=== PATIENT | female | born 1960 | race African-American/Black ===

== ENCOUNTER 2023-10-21 14:17 | Outpatient (AMB) | payer OTHER, SELFPAY ==
--- NOTE | 2023-10-21 14:22 | HO.SPINEOV ---
Intake Intake Visit Reasons: Lumbar spondylosis & DDD Intake Note: Ms. Salinas is here today c/o Lower Back pain that radiates to both legs. 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 She is a pleasant 63 y/o female who comes in today with a CC of low back pain with radiation into her right lower extremity. She states that her pain began about 1 year ago with no inciting incident identified. She reports that she awoke 1 day with low back pain and shooting pains into her right leg. When describing the radiation of her pain she runs her hand over posterior buttocks, across her anterior thigh, over the knee, and down the right lateral side of her calf. She states that it also affects the top of her foot. She reports associated symptoms of a feeling of weakness on the right side. She is attempted physical therapy which she reports was not helpful and only increased her pain. She states she is currently taking extra-strength Tylenol up to 4-6 times a day, with only minimal relief of her symptoms. She is attempted to utilize ice, heat, rest, pain patches, and [id number] pain creams with only modest relief. She reports that her pain is worse with standing and ambulating, causing her to favor her left side. She reports her pain is alleviated by resting and sitting. PMH: Obesity, Hypothyroidism, hypertension, iron-deficiency anemia, chronic kidney disease, history thyroid cancer with thyroidectomy, vitamin-D deficiency, GERD, glaucoma, history renal cell cancer with resection, history tubal ligation, history ovarian cystectomy, history rectal tumor excision. Social hx: The patient does not smoke, reports no substance use. Medications: Levothyroxine, gabapentin, lisinopril, nifedipine, omeprazole, metoprolol, estradiol, diclofenac gel, methocarbamol, Ativan, fluticasone, acetaminophen, daily aspirin. Allergies: Pollen. Physical exam: The patient has 5/5 strength in her upper and lower extremities. She has no sensational deficits. Her reflexes are 2+ intact. She is able to rise from seated position but elicits pain when doing so. She walks with an antalgic gait favoring her left side. (+) right-sided straight leg raise. (-) left-sided straight leg raise. (-) Eckert's, (-) clonus. Imaging review: MRI of the lumbar spine completed at [facility] shows diffuse spondylosis of the lumbar spine. There is moderate central canal stenosis at L2-3 with moderate bilateral foraminal stenosis at this level. There is also moderate-severe central canal stenosis at L3-4 with moderate left sided and severe right-sided foraminal stenosis. Impression: Doreen is a pleasant 63-year-old female who comes in today with a chief complaint of low back pain with radiation into her right lower extremity. She states this has been ongoing for the past year and she can not identify an inciting incident for her pain. The description of her pain radiation is most consistent with an L4/L5 radiculopathy on the right side. This dermatomal distribution does not exactly match her MRI. There is obvious impingement at the right sided L4 nerve root, but L5 does not appear to be significantly affected. I would like to review this case with Dr. Zamudio next week and call the patient back with an answer regarding a surgical plan. ERNESTINA Bell and I tentatively discussed the possibility of an L2-3 & L3-4 midline sparing decompression. I reviewed the possibility of a decompression with Doreen and discussed what this type of surgery would entail. She is agreeable to pursuing a surgical intervention for this problem at this time. She understands that I will need to review this case with Dr. Zamudio and will contact her next week. Thank you for allowing us to care for your patient. The total time spent with this visit with this patient was 45 minutes reviewing history, physical exam, MRI imaging review, and implementation of treatment plan or further diagnostic testing Ryan Zamudio MD,PhD [facility] Coding Level of Care Code New Pt Level 4 (47157) Diagnoses Lumbar radiculopathy M54.16
== END 2023-10-21 15:10 | disposition home or self-care (01) ==
PROVIDERS: Referring Provider Physician Assistant; Visit Provider Physician Assistant
DX: M54.16 Radiculopathy, lumbar region (principal)
CPT/HCPCS: 99204

== ENCOUNTER → 2023-10-21 14:17 | Outpatient (BNVA) | payer OTHER, SELFPAY | PROVIDERS: Visit Provider Physician Assistant ==